=== PATIENT | female | born 1975 | race African-American/Black ===

== ENCOUNTER 2024-06-12 13:39 | Emergency (ER) | payer SELFPAY ==
[2024-06-12 14:06] VITALS: PULSE 81; RESP 20; TEMP 98; BMI 28.8
[2024-06-12] MEDS ORDERED: HYDROCHLOROTHIAZIDE 25 MG TABLET (FP) ONE (15:50)
[2024-06-12] MEDS: HYDROCHLOROTHIAZIDE 12.5 MG CAPSULE (FP) PO ONE (15:52)
[2024-06-12 16:53] VITALS: BP 182/99
== END 2024-06-12 17:37 | disposition home or self-care (01) ==
LOC: JER 13:39
DX: I10 Essential (primary) hypertension (principal)
CPT/HCPCS: 99283-25